=== PATIENT | female | born 1990 | race Caucasian/White ===

== ENCOUNTER 2019-02-02 19:55 | Emergency (ER) ==
[2019-02-02 19:59] VITALS: TEMP 99.7; BMI 61.9
[2019-02-02] MEDS ORDERED: LACTATED RINGERS 1,000 ML IV STA (20:04)
[2019-02-02] MEDS ORDERED: ZOFRAN 4 MG/2 ML IVP STA (20:04)
[2019-02-02] MEDS ORDERED: MORPHINE 4 MG/ML SYRINGE IVP STA (20:04)
[2019-02-02] MEDS ORDERED: PROTONIX IV IVP STA (20:04)
--- NOTE | 2019-02-02 20:04 | ED.PDOC ---
General ED Provider: Dr. THEODORE CARPENTER Chief Complaint: Abdominal Pain Stated Complaint: Patient is a 28 year old female who comes to the ER with complaints of right abdomina pain associated with nasuea without vomiting. Has a history of multple urinary tract infection but denies any blood or urinary symptoms today. Time Seen by Physician: 20:02 Mode of Arrival: Wheelchair Information Source: Patient Exam Limitations: No limitations Nursing and Triage Documentation Reviewed and Agree: Yes Does patient meet sepsis criteria?: No System Inflammatory Response Syndrome: Not Applicable Sepsis Protocol: For patient's 13 years and over: Temp is 96.8 and below OR 101 and greater Pulse >90 BPM Resp >20/minute Acutely Altered Mental Status Are patient's symptoms suggestive of a new infection, such as: -Pneumonia -Skin, Soft Tissue -Endocarditis -UTI -Bone, Joint Infection -Implantable Device -Acute Abdominal Infection -Wound Infection -Meningitis -Blood Stream Catheter Infection -Unknown GI Complaint Exam - Abdominal Pain Complaint/Exam Onset: Sudden Duration: 1 hour ago Symptoms Are: Still present Timing: Constant Initial Severity: Severe Current Severity: Severe Location of Pain: RLQ Character: Reports: Aching, Throbbing, Cramping Aggravating: Reports: Position Alleviating: Reports: None Associated Signs and Symptoms: Reports: Nausea. Denies: Diaphoresis, Fever, Cough, Chest pain, Dizziness, Back pain, Constipation, Blood in stool, Dysuria, Urinary frequency, Decreased urine output, Decreased appetite, Vaginal bleeding , Vaginal discharge, Vomiting, Diarrhea, Sore throat, Decreased activity AAA Risk Factors: Reports: None Cardiac Risk Factors: Reports: None Ectopic Risk Factors: Reports: None Ovarian Torsion Risk Factors: Reports: None Related Surgical History: Reports: Cholecystectomy Patient Rh Status: Unknown Abdominal Findings: Present: McBurney's Point tender, Other (severe obesity ). Absent: Rebound tenderness Differential Diagnoses: Appendicitis, Gastroenteritis, PUD, UTI Review of Systems - Review Of Systems Constitutional: Reports: Loss of appetite. Denies: Chills, Diaphoresis, Fever, Malaise Eyes: Reports: No symptoms Ears, Nose, Mouth, Throat: Reports: No symptoms Respiratory: Reports: No symptoms Cardiac: Reports: No symptoms GI: Reports: Abdominal pain, Nausea, Poor appetite. Denies: Vomiting : Reports: No symptoms Musculoskeletal: Reports: No symptoms Skin: Reports: No symptoms Neurological: Reports: Anxiety Endocrine: Reports: No symptoms Hematologic/Lymphatic: Reports: No symptoms All Other Systems: Reviewed and Negative Past Medical History - Past Medical History Previously Healthy: Yes Endocrine: Reports: None Cardiovascular: Reports: Hypertension Respiratory: Reports: None Hematological: Reports: None Gastrointestinal: Reports: None Genitourinary: Reports: None Neuro/Psych: Reports: None Musculoskeletal: Reports: None Cancer: Reports: None Last Menstrual Period: 2 WEEKS - Surgical History General Surgical History: Reports: Cholecystectomy - Family History Family History: Reports: Unknown - Social History Smoking Status: Current every day smoker, Heavy tobacco smoker Hx Substance Use: No Alcohol Screening: None - Immunizations Tetanus Shot up to Date: Yes Physical Exam - Physical Exam Appearance: Ill-appearing, Obese Ill-appearing: Moderate Pain Distress: Severe Neck: Supple Respiratory: Airway patent, Breath sounds clear, Breath sounds equal, Respirations nonlabored GI/: Tender (Right lower quadrant ) Musculoskeletal: Normal strength, ROM intact, No edema, No calf tenderness Skin: Warm, Dry, Normal color Neurological: Sensation intact Psychiatric: Anxious Interpretation - Radiology Interpretation Radiology Interpretation By: Radiologist Radiology Results: Positive Exam Interpreted: CT Scan (Ovarian cyst ) Re-Evaluation - Re-Evaluation Time of Re-Evaluation: 20:50 Status: Worse Pain Level: worse Appearance: Other (ill) - Re-Evaluation Time of Re-Evaluation: 23:00 Status: Improved Vital Signs Stable: Yes (BP 160/88) Pain Level: almost gone Critical Care Note - Critical Care Note Total Time (mins): 30 Course - Course Hematology/Chemistry: 02/02/19 20:18 02/02/19 20:18 Orders, Labs, Meds: Lab Review 02/02/19 02/02/19 02/02/19 20:18 20:18 20:18 WBC 8.66 RBC 4.77 Hgb 11.9 L Hct 36.4 L MCV 76.3 L MCH 24.9 L MCHC 32.7 RDW Coeff of Chris 15.9 H Plt Count 216 Immature Gran % (Auto) 0.3 Neut % (Auto) 74.2 Lymph % (Auto) 19.5 [place] % (Auto) 4.4 Eos % (Auto) 1.4 Baso % (Auto) 0.2 Immature Gran # (Auto) 0.0 Neut # (Auto) 6.4 Lymph # (Auto) 1.7 [place] # (Auto) 0.4 Eos # (Auto) 0.1 Baso # (Auto) 0.0 Sodium 141.0 Potassium 3.98 Chloride 106.1 Carbon Dioxide 22.3 Anion Gap 16.58 BUN 8.7 Creatinine 0.84 Estimated GFR (MDRD) 81.00 BUN/Creatinine Ratio 10.35 Glucose 107.5 H Calcium 8.91 Total Bilirubin 0.49 AST 25.0 ALT 24.8 Alkaline Phosphatase 57.6 Total Protein 7.36 Albumin 4.40 Globulin 2.96 Albumin/Globulin Ratio 1.48 Amylase 61.9 Lipase 47.1 Serum , Qual Negative Urine Color Urine Clarity Urine pH Ur Specific [place] Urine Protein Urine Glucose (UA) Urine Ketones Urine Blood Urine Nitrite Urine Bilirubin Urine Urobilinogen Ur Leukocyte Esterase Urine Microscopic RBC Urine Microscopic WBC Ur Squamous Epith Cells Urine Bacteria 02/02/19 22:13 WBC RBC Hgb Hct MCV MCH MCHC RDW Coeff of Chris Plt Count Immature Gran % (Auto) Neut % (Auto) Lymph % (Auto) [place] % (Auto) Eos % (Auto) Baso % (Auto) Immature Gran # (Auto) Neut # (Auto) Lymph # (Auto) [place] # (Auto) Eos # (Auto) Baso # (Auto) Sodium Potassium Chloride Carbon Dioxide Anion Gap BUN Creatinine Estimated GFR (MDRD) BUN/Creatinine Ratio Glucose Calcium Total Bilirubin AST ALT Alkaline Phosphatase Total Protein Albumin Globulin Albumin/Globulin Ratio Amylase Lipase Serum , Qual Urine Color Yellow Urine Clarity Clear Urine pH 5.5 Ur Specific [place] 1.010 Urine Protein Negative Urine Glucose (UA) Negative Urine Ketones Negative Urine Blood Trace-intact Urine Nitrite Negative Urine Bilirubin Negative Urine Urobilinogen 0.2 Ur Leukocyte Esterase Negative Urine Microscopic RBC 2-5 Urine Microscopic WBC 0-2 Ur Squamous Epith Cells 10-20 Urine Bacteria Trace Orders Category Date Time Status NPO REMINDER: IMAGING ONCE CARE 02/02/19 21:29 Completed ED IV/MEDIPORT/POWERPORT .ONCE EMERGENCY 02/02/19 20:04 Active AMYLASE Stat LAB 02/02/19 20:18 Completed CBC W/ AUTO DIFF Stat LAB 02/02/19 20:18 Completed COMPREHENSIVE METABOLIC PANEL Stat LAB 02/02/19 20:18 Completed HCG QUALITATIVE [SERUM ] Stat LAB 02/02/19 20:18 Completed LIPASE Stat LAB 02/02/19 20:18 Completed URINALYSIS C & S IF INDICATED Stat LAB 02/02/19 22:13 Completed 0.9 % Sodium Chloride [Saline Flush] MEDS 02/02/19 20:04 Discontinued 1 syr IVF PRN PRN Hydromorphone HCl [Dilaudid 1 mg/ml Syringe] MEDS 02/02/19 21:00 Discontinued 1 mg IVP ONCE STA Methylprednisolone Sod Succ/Pf [Solu-Medrol 125 mg] MEDS 02/02/19 23:01 Discontinued 125 mg IVP ONCE STA Morphine Sulfate [Morphine 4 mg/ml Syringe] MEDS 02/02/19 20:04 Discontinued 4 mg IVP ONCE STA Ondansetron HCl/Pf [Zofran 4 mg/2 ml] MEDS 02/02/19 20:04 Discontinued 4 mg IVP ONCE STA Pantoprazole Sodium [Protonix IV] MEDS 02/02/19 20:04 Discontinued 40 mg IVP ONCE STA Ringers Lactated Solution [Lactated Ringers] 1,000 ml MEDS 02/02/19 20:[address] ABD/PEL WO RENAL STONE PROT Stat RADS 02/02/19 20:[address] ABDOMEN/PELVIS W CONTRAST Stat RADS 02/02/19 21:27 Completed Medications Discontinued Medications Generic Name Dose Route Start Last Admin Trade Name Freq PRN Reason Stop Dose Admin Hydromorphone HCl 1 mg 02/02/19 21:00 02/02/19 21:06 Dilaudid 1 Mg/Ml Syringe IVP 02/02/19 21:01 1 mg ONCE STA Administration Lactated Ringer's 1,000 mls @ 1,000 mls/hr 02/02/19 20:04 02/02/19 20:37 Lactated Ringers IV 02/02/19 21:03 1,000 mls/hr BOLUS STA Administration Methylprednisolone Sodium Succinate 125 mg 02/02/19 23:01 02/02/19 23:06 Solu-Medrol 125 Mg IVP 02/02/19 23:02 125 mg ONCE STA Administration Morphine Sulfate 4 mg 02/02/19 20:04 02/02/19 20:23 Morphine 4 Mg/Ml Syringe IVP 02/02/19 20:05 4 mg ONCE STA Administration Ondansetron HCl 4 mg 02/02/19 20:04 02/02/19 20:23 Zofran 4 Mg/2 Ml IVP 02/02/19 20:05 4 mg ONCE STA Administration Pantoprazole Sodium 40 mg 02/02/19 20:04 02/02/19 20:23 Protonix Iv IVP 02/02/19 20:05 40 mg ONCE STA Administration Sodium Chloride 1 syr 02/02/19 20:04 02/02/19 20:24 Saline Flush IVF 1 syr PRN PRN Administration To flush IV Vital Signs: Temp Pulse Resp BP Pulse Ox 02/02/19 21:56 160/88 H 02/02/19 19:56 99.7 F H 106 H 20 181/110 H 96 Departure - Departure Time of Disposition: 23:15 Disposition: HOME SELF-CARE Discharge Problem: Ovarian cyst Qualifiers: Laterality: right Qualified Code(s): N83.201 - Unspecified ovarian cyst, right side Instructions: Ovarian Cyst (ED) Condition: Stable Pt referred to PMD for follow-up: Yes IPMP verified?: No Additional Instructions: Take Medications as needed for pain Follow up with PCP in 3 days Prescriptions: Prednisone 20 mg PO DAILYWM #5 tablet Tramadol HCl [Ultram] 50 mg PO Q6H PRN #14 tablet PRN Reason: Severe Pain Allergies/Adverse Reactions: Allergies NSAIDS (Non-Steroidal Anti-Inflamma Adverse Reaction (Verified 02/02/19 19:59) Penicillins Adverse Reaction (Verified 02/02/19 19:59) Home Medications: Ambulatory Orders Prednisone 20 mg PO DAILYWM #5 tablet 02/02/19 Tramadol HCl [Ultram] 50 mg PO Q6H PRN #14 tablet 02/02/19 Disposition Discussed With: Patient, Family
[2019-02-02] MEDS ORDERED: DILAUDID 1 MG/ML SYRINGE IVP STA (21:00)
--- NOTE | 2019-02-02 21:16 | CT ---
EXAM: CT of the abdomen and pelvis without contrast. HISTORY: Right-sided abdominal pain. PROCEDURE: Contiguous axial CT images of the abdomen and pelvis without contrast with coronal and sa gittal reformats. FINDINGS: The liver is normal in appearance. The gallbladder is surgically absent. The pancreas, sp emilie, adrenal glands and kidneys are normal in appearance. No nephrolithiasis or hydronephrosis. Th e ureters are incompletely visualized. The abdominal aorta is normal in appearance. There is ill-de fined soft tissue density in the central mesenteric fat of the abdomen. The appendix is not visualiz ed. The visualized loops of bowel are normal in appearance. There is trace free fluid in the right pelvis. No free air in the abdomen or pelvis. The bladder is minimally filled which limits the eval uation. The uterus is unremarkable. There is a 7.1 cm fluid density cyst in the left adnexa. The b ones and soft tissues are unremarkable. Impression: No nephrolithiasis or hydronephrosis. The ureters are incompletely visualized and a non obstructive ureterolith cannot be excluded. Ill-defined soft tissue density in the central mesenteric fat of the abdomen which may represent enla rged mesenteric veins. Recommend stat CT of the abdomen with IV contrast for further evaluation. 7.1 cm simple left adnexal cyst. Trace free fluid in the right pelvis. The appendix is not visualized. Appendicitis cannot be excluded. Cholecystectomy.
[2019-02-02 21:56] VITALS: BP 160/88
--- NOTE | 2019-02-02 22:33 | CT ---
Exam: CT of the abdomen and pelvis with contrast History: Abdominal pain right lower quadrant Technique: [address] of the abdomen and pelvis following intravenous contrast FINDINGS: The lung bases are clear. No significant liver abnormality. The pancreas and adrenal gla nds appear normal. Spleen diameter 15 x 14 cm. Previous diameter on 05/21/2012 was 14 x 14 cm. The stomach and hiatus are unremarkable.Prior cholecystectomy. Kidneys and proximal collecting system a re unremarkable. Vascular structures appear normal. The appendix is normal. Bowel loops demonstrat e normal caliber. No inflamatory change seen in the mesentery or retroperitoneum. Left adnexal cyst measures 6.4 x 5.9 cm. Right adnexal cyst measures 3.2 x 3.7 cm. No pelvic fat in flammation. The uterus appears normal. Normal urinary bladder. Normal pelvic bowel loops. No acut e findings of the skeleton. Impression: 1. No inflammatory process, bowel or urinary obstruction is seen. 2. Nonspecific splenomegaly essentially stable from 05/21/2012. 3. Bilateral ovarian cysts. Large cyst on the left measuring 6.4 cm. 4. Trace pelvic fluid is nonspecific
[2019-02-02] MEDS ORDERED: SOLU-MEDROL 125 MG IVP STA (23:01)
== END 2019-02-02 23:18 | disposition home or self-care (01) ==
LOC: ED 19:55
DX: N83.201 Unspecified ovarian cyst, right side (principal); Z87.440 Personal history of urinary (tract) infections; F17.210 Nicotine dependence, cigarettes, uncomplicated
CPT/HCPCS: 36415; 80053; 81001; 82150; 83690; 84703; 85025; 96361; 96374; 96375; 99284

== ENCOUNTER 2019-02-08 13:52 | Emergency (ER) ==
[2019-02-08 13:57] VITALS: TEMP 99.6; BMI 63.5
[2019-02-08 15:21] VITALS: BP 160/90
--- NOTE | 2019-02-08 15:24 | ED.PDOC ---
General ED Provider: Dr. NATIVIDAD LEE Chief Complaint: Tooth Problem Stated Complaint: DENTAL PAIN Time Seen by Physician: 14:00 Mode of Arrival: Walk-In Information Source: Patient Exam Limitations: No limitations Primary Care Provider: SHMUEL CONROY Nursing and Triage Documentation Reviewed and Agree: Yes Does patient meet sepsis criteria?: No System Inflammatory Response Syndrome: Not Applicable Sepsis Protocol: For patient's 13 years and over: Temp is 96.8 and below OR 101 and greater Pulse >90 BPM Resp >20/minute Acutely Altered Mental Status Are patient's symptoms suggestive of a new infection, such as: -Pneumonia -Skin, Soft Tissue -Endocarditis -UTI -Bone, Joint Infection -Implantable Device -Acute Abdominal Infection -Wound Infection -Meningitis -Blood Stream Catheter Infection -Unknown EENT Complaint Exam - Dental/Oral Complaint/Exam Mechanism of Injury: Unknown Symptoms Are: Still present Timing: Constant Initial Severity: Moderate Current Severity: Moderate Character: Reports: Aching, Throbbing Aggravating: Reports: None, Heat, Cold Alleviating: Reports: None Associated Signs and Symptoms: Denies: Swelling, Discharge, Fever, Foul odor, Foul taste in mouth Related History: Reports: Similar episode Cardiac Risk Factors: Reports: None Dental/Oral Surgical History: Reports: None Tooth Findings: Present: Gross decay, Gross caries Cervical Lymphadenopathy Present: No Facial Swelling Present: No Bleeding Present: No Oropharynx Findings: Absent: Clots, Active bleeding Septal Hematoma: No Foreign Body Present: No Dysphagia Present: No Drooling Present: No Asymmetrical Tonsillar Swelling Present: No Uvula Midline: No Kylah-tonsillar Fluctuence: No Trismus Present: No Palatal Petechiae Present: No Scarlatinaform Rash Present: No Lesions: Absent: Lip, Gums, Tongue, Buccal Mucosa, Pharynx Exanthem: Absent: Lip, Gums, Tongue, Buccal Mucosa, Pharynx Vesicles: Absent: Lip, Gums, Tongue, Buccal Mucosa, Pharynx Teeth Picture: 1 - DECAY Differential Diagnoses: Dental Caries, Fractured Tooth Review of Systems - Review Of Systems Constitutional: Reports: No symptoms Eyes: Reports: No symptoms Ears, Nose, Mouth, Throat: Reports: Mouth pain Respiratory: Reports: No symptoms Cardiac: Reports: No symptoms GI: Reports: No symptoms : Reports: No symptoms Musculoskeletal: Reports: No symptoms Skin: Reports: No symptoms Neurological: Reports: No symptoms Endocrine: Reports: No symptoms Hematologic/Lymphatic: Reports: No symptoms All Other Systems: Reviewed and Negative Past Medical History - Past Medical History Previously Healthy: Yes Endocrine: Reports: None Cardiovascular: Reports: Hypertension Respiratory: Reports: None Hematological: Reports: None Gastrointestinal: Reports: None Genitourinary: Reports: None Neuro/Psych: Reports: None Musculoskeletal: Reports: None Cancer: Reports: None Last Menstrual Period: 1 month - Surgical History General Surgical History: Reports: Cholecystectomy - Family History Family History: Reports: Unknown - Social History Smoking Status: Current every day smoker, Heavy tobacco smoker Hx Substance Use: No Alcohol Screening: None - Immunizations Tetanus Shot up to Date: No Physical Exam - Physical Exam Appearance: Well-appearing, No pain distress, Well-nourished Eyes: SMITA, EOMI, Conjunctiva clear ENT: Ears normal, Nose normal, Oropharynx normal Respiratory: Airway patent, Breath sounds clear, Breath sounds equal, Respirations nonlabored Cardiovascular: RRR, Pulses normal, No rub, No murmur GI/: Soft, Nontender, No masses, Bowel sounds normal, No Organomegaly Musculoskeletal: Normal strength, ROM intact, No edema, No calf tenderness Skin: Warm, Dry, Normal color Neurological: Sensation intact, Motor intact, Reflexes intact, Cranial nerves intact, Alert, Oriented Psychiatric: Affect appropriate, Mood appropriate Critical Care Note - Critical Care Note Total Time (mins): 0 Course - Course Vital Signs: Temp Pulse Resp BP Pulse Ox 02/08/19 15:20 160/90 H 02/08/19 13:52 99.6 F 121 H 18 192/120 H 98 Departure - Departure Time of Disposition: 15:24 Disposition: HOME SELF-CARE Discharge Problem: Toothache, Pain, dental Instructions: Toothache (ED) Condition: Good Pt referred to PMD for follow-up: Yes IPMP verified?: No Additional Instructions: Please call your Family Physician as soon as possible to schedule a follow-up appointment. Allergies/Adverse Reactions: Allergies NSAIDS (Non-Steroidal Anti-Inflamma Adverse Reaction (Verified 02/08/19 15:10) Penicillins Adverse Reaction (Verified 02/08/19 15:10) Home Medications: Ambulatory Orders 1 [No Reported Medications] 02/08/19
== END 2019-02-08 15:34 | disposition home or self-care (01) ==
LOC: ED 13:52
DX: K08.89 Other specified disorders of teeth and supporting structures (principal); K02.7 Dental root caries; I10 Essential (primary) hypertension; F17.210 Nicotine dependence, cigarettes, uncomplicated
CPT/HCPCS: 99282

== ENCOUNTER 2019-04-01 22:58 | Emergency (ER) ==
[2019-04-01 23:15] VITALS: BP 156/87; TEMP 99.6; BMI 61.6
[2019-04-02] MEDS ORDERED: DEMEROL 50 MG/ML VIAL IM STA (00:14)
--- NOTE | 2019-04-02 00:16 | ED.PDOC ---
General ED Provider: Dr. FRANK FELIX Chief Complaint: Headache Stated Complaint: Hedache Left frontal - like prior HAs. Gets them once or twice a month - not related to her periods...since adulthood. Has used Imitrex in the past - not helped. Has had other medications for prevention. Usually feels them comming on. Time Seen by Physician: 00:05 Mode of Arrival: Walk-In Information Source: Patient Exam Limitations: No limitations Primary Care Provider: SHMUEL CONROY Nursing and Triage Documentation Reviewed and Agree: Yes Does patient meet sepsis criteria?: No System Inflammatory Response Syndrome: Not Applicable Sepsis Protocol: For patient's 13 years and over: Temp is 96.8 and below OR 101 and greater Pulse >90 BPM Resp >20/minute Acutely Altered Mental Status Are patient's symptoms suggestive of a new infection, such as: -Pneumonia -Skin, Soft Tissue -Endocarditis -UTI -Bone, Joint Infection -Implantable Device -Acute Abdominal Infection -Wound Infection -Meningitis -Blood Stream Catheter Infection -Unknown Review of Systems - Review Of Systems Constitutional: Reports: No symptoms Eyes: Reports: Photophobia Respiratory: Reports: No symptoms Cardiac: Reports: No symptoms GI: Reports: Nausea. Denies: Vomiting Neurological: Reports: Headache All Other Systems: Reviewed and Negative Past Medical History - Past Medical History Previously Healthy: Yes Endocrine: Reports: None Cardiovascular: Reports: Hypertension Respiratory: Reports: None Hematological: Reports: None Gastrointestinal: Reports: None Genitourinary: Reports: None Neuro/Psych: Reports: None Musculoskeletal: Reports: None Cancer: Reports: None Last Menstrual Period: 2 WEEKS AGO - Surgical History General Surgical History: Reports: Cholecystectomy - Family History Family History: Reports: Unknown - Social History Smoking Status: Current every day smoker, Light tobacco smoker Hx Substance Use: No Alcohol Screening: Occasionally - Immunizations Tetanus Shot up to Date: Yes Physical Exam - Physical Exam Appearance: Well-appearing Ill-appearing: None Pain Distress: Moderate Eyes: SMITA, EOMI Neck: Supple Respiratory: Airway patent, Breath sounds clear, Breath sounds equal, Respirations nonlabored Cardiovascular: RRR, Pulses normal Skin: Warm, Dry, Normal color Neurological: Sensation intact, Motor intact, Alert, Oriented Psychiatric: Affect appropriate, Mood appropriate Critical Care Note - Critical Care Note Total Time (mins): 10 Course - Course Orders, Labs, Meds: Orders Category Date Time Status Meperidine HCl/Pf [Demerol 50 mg/ml Vial] MEDS 04/02/19 00:14 Discontinued 50 mg IM ONCE STA Ondansetron [Zofran Odt] MEDS 04/02/19 00:19 Discontinued 4 mg PO ONCE STA Medications Discontinued Medications Generic Name Dose Route Start Last Admin Trade Name [place] PRN Reason Stop Dose Admin Meperidine HCl 50 mg 04/02/19 00:14 04/02/19 00:30 Demerol 50 Mg/Ml Vial IM 04/02/19 00:15 50 mg ONCE STA Administration Ondansetron HCl 4 mg 04/02/19 00:19 04/02/19 00:30 Zofran Odt PO 04/02/19 00:20 4 mg ONCE STA Administration Vital Signs: Temp Pulse Resp BP Pulse Ox 04/01/19 23:03 99.6 F 112 H 20 156/87 H 98 Departure - Departure Time of Disposition: 01:23 Disposition: HOME SELF-CARE Discharge Problem: Headache Qualifiers: Headache type: unspecified Headache chronicity pattern: acute headache Intractability: not intractable Qualified Code(s): R51 - Headache Instructions: Acute Headache (ED) Condition: Good Pt referred to PMD for follow-up: Yes IPMP verified?: No Additional Instructions: Follow up with primary care as needed; resume any usual medications. Allergies/Adverse Reactions: Allergies NSAIDS (Non-Steroidal Anti-Inflamma Adverse Reaction (Verified 04/01/19 23:15) Rash Penicillins Adverse Reaction (Verified 04/01/19 23:15) Rash Home Medications: Ambulatory Orders 1 [No Reported Medications] 04/01/19
[2019-04-02] MEDS ORDERED: ZOFRAN ODT PO STA (00:19)
== END 2019-04-02 01:35 | disposition home or self-care (01) ==
LOC: ED 22:58
DX: R51 Headache (principal); I10 Essential (primary) hypertension; F17.210 Nicotine dependence, cigarettes, uncomplicated
CPT/HCPCS: 96372; 99283